=== PATIENT | male | born 1985 | race Caucasian/White ===

== ENCOUNTER 2022-06-02 05:58 | Day surgery (SDC) | payer OTHER ==
[2022-06-02] MEDS ORDERED: Lactated Ringers 1,000 ML IV ONE (06:36)
[2022-06-02] MEDS ORDERED: Versed 2 MG/2 ML Injection ONE (07:25)
[2022-06-02] MEDS ORDERED: DIPRIVAN 200 MG/20 ML IV ONE ×2 (07:25→07:43)
[2022-06-02] MEDS ORDERED: SUBLIMAZE 100 MCG/2 ML ONE (07:34)
[2022-06-02 08:35] VITALS: BP 137/94; PULSE 64; O2SAT 96
--- NOTE | 2022-06-02 09:27 | OP ---
SURGERY DATE: 06/02/2022 SURGERY TIME: 728 PREOPERATIVE DIAGNOSIS: 1. INTERMITTENT RECTAL BLEEDING. POSTOPERATIVE DIAGNOSIS: 1. NORMAL COLON. PROCEDURE: 1. Colonoscopy. SURGEON: Dr. Bhatt. ANESTHESIA: MAC. Medications given by the Anesthesia Department. BRIEF HISTORY: The patient is a 36 y/o WM patient presenting now for colonoscopic evaluation. He reports that his uncle has had diverticulitis, but nobody else in the family with any colon problems. The patient reports his problem is intermittent and he has had no bleeding recently. The patient was felt to need to have endoscopic evaluation. He was appraised of the risks of the procedure including the risk of perforation, phlebitis, untoward reaction to medication, bleeding, and missed lesions. The patient verbalized his understanding and desired to have the procedure performed. DESCRIPTION OF PROCEDURE: The patient was given the medications by the Anesthesia Department. He had continuous pulse oximetry, ECG monitoring, and intermittent BP monitoring during the examination. He was placed in the left lateral decubitus position. A digital rectal examination was performed and revealed normal anal sphincter tone, no masses, and a normal prostate. The flexible Olympus pediatric colonoscope was used to intubate the rectum. A view of the colon was developed sequentially to the cecum. We also traversed into the terminal ileum approximately 15 cm. Upon insertion and withdrawal, including a retroflex view in the rectum, no mucosal lesions were encountered. The scope was removed from the patient who tolerated the procedure well and was sent back to OP recovery in good condition. The prep was noted to be fair to good.
== END 2022-06-02 08:40 | disposition home or self-care (01) ==
LOC: SDC 05:58
PROVIDERS: ATTEND Family Medicine
DX: K62.5 Hemorrhage of anus and rectum (principal)
CPT/HCPCS: J2250; J2704; J3010